=== PATIENT | female | born 1965 | race Caucasian/White ===

== ENCOUNTER 2018-01-04 13:26 | Emergency (ER) | payer OTHER, SELFPAY ==
[2018-01-04 13:27] VITALS: BP 136/85; PULSE 74; RESP 16; TEMP 36.9; O2SAT 100; BMI 24.5
--- NOTE | 2018-01-04 14:05 | ED.VISSUMM ---
- ER Visit Summary Date of Service: 01/04/18 Chief Complaint: Headache with a history of migraines History of Present Illness: The patient is a 52 F her migraines. Currently out of her Imitrex. States that she has had it for last 3 days it is right side behind her right eye typical vertigo migraines. Gradual onset. No trauma. She is on no blood thinners. No fever. Came over from work to be evaluated and hopefully treated. She denies any trouble moving her arms or legs. No visual change or speech change. She is having photophobia. Physical Examination: Signs are stable afebrile. HEENT exam unremarkable. Pupils are reactive light. Extra motions intact. No facial trauma. Neck nontender no meningismus. Lungs clear to auscultation bilaterally. Heart regular rate and rhythm no murmur. Abdomen is soft nontender. Normal bowel sounds. No peritoneal signs. Extremities moving all 4. Neurovascular intact. Neuro exam normal. NIH is 0. Normal speech. No facial droop. Fingertip to nose and [id number] within normal limits. 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 Bilateral dorsi plantar flexion. Test Results: None Emergency Department Course and Treatment: Treated with IV fluids, Toradol and Zofran. She was also given subcu Imitrex Treatment Plan: Multiple repeat exams the patient's headache is improving and almost resolving after subcu Imitrex. Neurologic exam remains normal. She will be discharged home. Disposition: Discharge Impression: Acute cephalgia with history of migraines This note was generated with [employer] dictation software. It may contain incorrect words, spelling, and punctuation that were not noted in review of the chart prior to signing ED Disposition - Plan for ED Patient: Disposition: Home or Assisted Living Chief Complaint: Headache Instructions: ED Headache Migraine Referrals: Jaleel Huggins MD [Primary Care Provider] - As Needed Additional Instructions: Plenty of fluids and rest. Tylenol Motrin as needed for pain.
--- NOTE | 2018-01-04 14:08 | ED.DCSUM_ITS ---
- ER Visit Summary Date of Service: 01/04/18 Chief Complaint: Headache with a history of migraines History of Present Illness: The patient is a 52 F her migraines. Currently out of her Imitrex. States that she has had it for last 3 days it is right side behind her right eye typical vertigo migraines. Gradual onset. No trauma. She is on no blood thinners. No fever. Came over from work to be evaluated and hopefully treated. She denies any trouble moving her arms or legs. No visual change or speech change. She is having photophobia. Physical Examination: Signs are stable afebrile. HEENT exam unremarkable. Pupils are reactive light. Extra motions intact. No facial trauma. Neck nontender no meningismus. Lungs clear to auscultation bilaterally. Heart regular rate and rhythm no murmur. Abdomen is soft nontender. Normal bowel sounds. No peritoneal signs. Extremities moving all 4. Neurovascular intact. Neuro exam normal. NIH is 0. Normal speech. No facial droop. Fingertip to nose and [id number] within normal limits. Bilateral car salter strength. Bilateral dorsi plantar flexion. Test Results: None Emergency Department Course and Treatment: Treated with IV fluids, Toradol and Zofran. She was also given subcu Imitrex Treatment Plan: Multiple repeat exams the patient's headache is improving and almost resolving after subcu Imitrex. Neurologic exam remains normal. She will be discharged home. Disposition: Discharge Impression: Acute cephalgia with history of migraines This note was generated with [employer] dictation software. It may contain incorrect words, spelling, and punctuation that were not noted in review of the chart prior to signing ED Disposition - Plan for ED Patient: Disposition: Home or Assisted Living Chief Complaint: Headache Instructions: ED Headache Migraine Referrals: aJleel Huggins MD [Primary Care Provider] - As Needed Additional Instructions: Plenty of fluids and rest. Tylenol Motrin as needed for pain.
--- NOTE | 2018-01-04 14:08 | ED.DEP ---
ED Disposition - Plan for ED Patient: Disposition: Home or Assisted Living Chief Complaint: Headache Instructions: ED Headache Migraine Referrals: Jaleel Huggins MD [Primary Care Provider] - As Needed Additional Instructions: Plenty of fluids and rest. Tylenol Motrin as needed for pain.
[2018-01-04] MEDS: Ketorolac 30 MG/ML Syringe IV (14:09)
[2018-01-04] MEDS: 0.9% Normal Saline 1,000 ML 999 ML IV (14:09)
[2018-01-04] MEDS: Ondansetron 4 MG/2 ML Vial IV (14:09)
[2018-01-04] MEDS: SUMAtriptan 6 MG/0.5 ML Vial SC (16:06)
== END 2018-01-04 16:44 | disposition home or self-care (01) ==
LOC: ED 14:15
PROVIDERS: Emergency Provider Emergency Medicine; Family Provider Family Medicine; PCP Family Medicine
DX: G43.909 Migraine, unspecified, not intractable, without status migrainosus (principal)
CPT/HCPCS: 96372; 96374; 96375; 99283; J7030; A4216; J2405; J3030

== ENCOUNTER → 2019-10-08 | Outpatient (CLI) | payer OTHER, SELFPAY ==
[2019-10-01 09:28] VITALS: BMI 24.5
[2019-10-08 12:10] LABS: Absolute Lymphocyte Count 2.82 X10^3/uL (0.83-4.51); Absolute Neutrophil Count 3.9 X10^3/uL (2.0-7.7); Basophil# 0.08 X10^3/uL; Basophil% 1.1 % (0-1); Eosinophil# 0.17 X10^3/uL; Eosinophils% 2.2 % (0-5); Hematocrit 42.1 % (37-47); Hemoglobin 13.5 g/dL (12.0-15.0); Lymphocyte # 2.82 X10^3/ul (4.0); Lymphocyte % 37.1 % (19-41); Mean Corp Hgb Conc 32.1 g/dL (32-36); Mean Corpuscular Hgb 31.2 pg (27.0-32.0); Mean Corpuscular Volume 97.2 fL (81-99); Mean Platelet Vol. 9.2 fl (6.2-12.0); Monocyte# 0.65 X10^3/uL; Monocyte% 8.6 % (0-10); NRBC Flagged by Analyzer 0 % (0-5); Neutrophil # 3.86 X10^3/uL (2.7-7.7); Neutrophil % 50.7 % (47-70); Platelet Count 266 K/mm3 (150-450); RBC Distribution Width CV 12.2 % (11.6-14.6); Red Blood Count 4.33 M/mm3 (4.2-5.4); White Blood Count 7.6 K/mm3 (4.4-11.0)
[2019-10-08 12:56] LABS: ALB/GLOB Ratio 1.3 RATIO (0.9-2.4); AST(SGOT) 18 U/L (15-37); Alanine Aminotransfer ALT/SGPT 32 U/L (13-56); Albumin, Serum 3.7 g/dL (3.2-5.0); Alkaline Phosphatase 92 U/L (45-117); Anion Gap 5 (5-15); BUN 17 mg/dL (7-18); BUN/Creat Ratio 22.5 RATIO (10-20); Chloride 107 mmol/L (98-107); Cholesterol 198 mg/dL (200); Creatinine, Serum 0.76 mg/dL (0.55-1.02); EST Glomerular Filtration Rate 85 mL/min (>60); Est Glom Filt Rate - Afr Amer 103 mL/min (>60); Globulin 2.9 g/dL (2.2-4.2); Glucose 92 mg/dL (74-106); High Density Lipoprotein 71 mg/dL; Potassium 4.1 mmol/L (3.5-5.1); Protein, Total 6.6 g/dL (6.4-8.2); Sodium Level 141 mmol/L (136-145); Thyroid Stim Hormone (TSH) 0.99 uIU/mL (0.358-3.74); Triglycerides 69 mg/dL; Very Low Density Lipoprotein 14 mg/dL (5-40)
== END | disposition home or self-care (01) ==
LOC: BIMLAB 08:46
PROVIDERS: Family Provider Family Medicine; PCP Family Medicine; Visit Provider Nurse Practitioner Family
DX: Z13.0 Encounter for screening for diseases of the blood and blood-forming organs and certain disorders involving the immune mechanism (principal); Z13.29 Encounter for screening for other suspected endocrine disorder; Z13.220 Encounter for screening for lipoid disorders
CPT/HCPCS: 36415; 80053; 80061; 84443; 85025

== ENCOUNTER → 2021-09-28 14:33 | Outpatient (CLI) | payer OTHER, SELFPAY | PROVIDERS: PCP Family Medicine; Referring Provider Nurse Practitioner Family; Visit Provider Nurse Practitioner Family | DX: Z00.00 Encounter for general adult medical examination without abnormal findings (principal) | CPT/HCPCS: 36415 ==

== ENCOUNTER → 2022-09-27 | Outpatient (CLI) | payer OTHER, SELFPAY | END | disposition home or self-care (01) | LOC: BIMLAB 15:04 | PROVIDERS: PCP Family Medicine; Referring Provider Nurse Practitioner Family; Visit Provider Nurse Practitioner Family | DX: Z00.00 Encounter for general adult medical examination without abnormal findings (principal) | CPT/HCPCS: 36415 ==

== ENCOUNTER → 2025-07-29 | Outpatient (CLI) | payer BC, SELFPAY ==
--- NOTE | 2025-07-29 07:54 | US_ITS ---
PROCEDURE: PELVIC W/ TRANSVAGINAL 07/29/2025 REASON FOR EXAM: ABD PAIN, HISTORY OF OVARIAN CYSTS TECHNIQUE: Procedure Code: [id number] Modality: US Procedure: PELVIC W/ TRANSVAGINAL COMPARISON: None FINDINGS: Measurements: Uterus: 6.8 x 5.4 x 2.9 cm. Endometrial Thickness: 3 mm Right Ovary: 2.0 x 1.5 x 1.4 cm Left Ovary: 2.3 x 1.2 x 1.4 cm Uterus: A fibroid is present at the body on the left. It is primarily myometrial but abuts the junctional zone measuring 1.1 x 1.2 x 0.9 cm. Right ovary: No mass. Left ovary: No mass Other: No free fluid US/Pelvic w/ Transvaginal IMPRESSION: 1. No ovarian mass is seen. 2. Uterine fibroid, FIGO 3. Reading Location: [id number]
== END | disposition home or self-care (01) ==
PROVIDERS: PCP Family Medicine; Referring Provider Nurse Practitioner Family; Visit Provider Nurse Practitioner Family
DX: R10.9 Unspecified abdominal pain (principal)
CPT/HCPCS: 76830; 76856

== ENCOUNTER → 2025-10-15 | Outpatient (CLI) | payer BC, SELFPAY ==
--- NOTE | 2025-10-15 11:23 | RAD_ITS ---
PROCEDURE: CHEST PA AND LATERAL 10/15/2025 REASON FOR EXAM: COUGH TECHNIQUE: Procedure Code: RADCXR Modality: DX Procedure: CHEST PA AND LATERAL COMPARISON: None FINDINGS: Hardware: None Heart: The heart size is normal. Mediastinum: The mediastinal contour is unremarkable. Lungs: The lungs are clear. Bones: The bones are unremarkable. RAD/Chest PA and Lateral IMPRESSION: NO ACUTE FINDINGS. Reading Location: [facility]
--- OUTSIDE RECORDS SUMMARY | 2025-10-15 17:51 | XMS RPT_ITS | CCD ---
Author Organization [facility] Care Team Providers Care Solar Electric Practitioner Name Role Phone Dr. Grisel Huggins Primary Care Provider [phone] Dr. Grisel Huggins Referring Provider [phone] Erik MANAGER DISASTER RECOVERY, MANAGER DISASTER RECOVERY-C Gamaliel Attending Provider [phone] LUCRETIA LEZAMA MD Attending Unavailable GRISEL HUGGINS DO Primary Care Physician Dr. Grisel Huggins DO Primary Care Provider [phone] Dr. Grisel Huggins DO Referring Provider [phone] Babak Flores Attending Provider [phone] [place]r MANAGER DISASTER RECOVERY-CSusan Attending Provider [phone] DAVID FRANK MD Attending Unavailable GRISEL HUGGINS DO Primary Care Unavailable Dr. Grisel Huggins DO Primary Care Provider Dr. Grisel Huggins DO Referring Provider [phone] [phone] MANAGER DISASTER RECOVERY-CSusan Referring Provider [phone] Grisel Huggins Primary Care Unavailable Babak Flores Attending Unavailable Grisel Huggins Referring Unavailable Grisel Huggins Referring Unavailable Grisel Huggins Primary Care Unavailable Susan Blackmon Attending Unavailable Grisel Huggins Primary Care Unavailable Susan Blackmon Referring Unavailable Susan Blackmon Attending Unavailable Allergies Allergy Classification Reported Allergen(s) Allergy Type Date of Onset Reaction(s) Facility (3 sources) Sulfonamides (Antibiotic) Propensity to adverse reactions 2 Rash [facility] (1 source) Sulfonamides (Antibiotic) Drug allergy (disorder) 5 [facility] Repository Medications Current Medications Medication Drug Class(es) Dates Sig (Normalized) Sig (Original) acetaminophen 325 mg / HYDROcodone bitartrate 5 mg oral tablet (1 source) Opioid Agonist Start: 07-11-2025 End: 07-14-2025 take 1 tablet by mouth every six hours as needed for pain Sarepta 325- 5 mg oral tablet Dose = 1 tab(s), Oral, q6h, PRN As needed for severe pain, X 3 day(s), # 12 tab(s), 0 Refill(s), Abdominal pain, 58.5 Start Date: 07/11/25 Stop Date: 07/14/25 Status: Ordered Medication Dispense Status: Completed Quantity: 12.0 Unit: tab(s) Total Allowed Fills: 1 Fills Dispensed: 0 Indications: Unspecified abdominal pain; SUMAtriptan 100 mg oral tablet (20 sources) Serotonin-1b and Serotonin-1d Receptor Agonist Start: 12-01-2024 take 1 tablet by mouth once Sumatriptan Succinate 100 mg tablet Active 100 mg PO ONCE 9 December 01, 2024 11:15am Start: 02-28-2018 End: 12-01-2024 Sumatriptan Succinate 100 mg tablet Discontinued 0 .ROUTE .COMPLEX 9 October 10, 2023 9:17am November 14, 2023 11:52am TAKE ONE AT FIRST SIGN OF MIGRAINE HEADACHE, REPEAT IN TWO HRS IF NEEDED. Start: 02-28-2018 End: 02-28-2018 take 1 tablet by mouth once Sumatriptan Succinate (Imi trex) 100 mg tablet Discontinued 100 mg PO ONCE February 28, 2018 12:00am February 28, 2018 10:10am Completed/Discontinued Medications Medication Drug Class(es) Dates Sig (Normalized) Sig (Original) cyclobenzaprine hydrochloride 10 mg oral tablet (6 sources) Muscle Relaxant Start: 08-29-2018 End: 04-02-2019 take 1 tablet by mouth three times daily as needed for muscle spasms Cyclobenzaprine 10 mg tablet Discontinued 10 mg PO THREE TIMES A DAY as needed for muscle spasm September 11, 2018 3:50pm April 02, 2019 11:08am only after work hours on work days predniSONE 20 mg oral tablet (3 sources) Start: 08-29-2018 End: 09-11-2018 take 3 tablets by mouth once daily, then take 2 tablets by mouth once daily, then take 1 tablet by mouth once daily Prednisone 20 mg tablet Discontinued 20 mg PO DAILY 18 0 August 29, 2018 12:00am September 11, 2018 1:44pm 3 tablets daily for 3 days, then 2 tablets daily for 3 days, then 1 tablet daily for 3 days Problems Active Problems Problem Classification Problem Date Documented Da te Episodic/Chronic Abdominal pain (10 sources) Lower abdominal pain; Translations: [Lower abdominal pain, unspecified] Onset: 07-11-2025 Episodic Headache; including migraine (3 sources) Migraine; Translations: [Migraine, unspecified, not intractable, without status migrainosus] 04-02-2019 Chronic Other connective tissue disease (3 sources) Iliotibial band friction syndrome of left knee; Translations: [Iliotibial band syndrome, left leg] 03-27-2025 Episodic Other connective tissue disease (3 sources) Hand pain; Translations: [Pain in right hand] 03-27-2025 Episodic Other non-traumatic joint disorders (3 sources) Multiple joint pain; Translations: [Pain in unspecified joint] 03-27-2025 Episodic Sprains and strains (3 sources) Low back strain; Translations: [Strain of muscle, fascia and tendon of lower back, initial encounter] 08-29-2018 Episodic Past or Other Problems Problem Classification Problem Date Documented Da te Episodic/Chronic Other connective tissue disease (1 source) Pain in right hand; Translations: [Pain in right hand] Onset: 03-27-2025 Episodic Other connective tissue disease (1 source) Pain in left hand; Translations: [Pain in left hand] Onset: 03-27-2025 Episodic Other non-traumatic joint disorders (1 source) Pain in unspecified joint; Translations: [Pain in unspecified joint] Onset: 03-27-2025 Episodic Results Test Name Value Interpretation Reference Range Facility Pelvic w/ Transvaginalon Pelvic w/ Transvaginal [facility] [address] [place] [address] Pelvic w/ Transvaginal MR#: [id number] Acct: [id number] Name: TRACEY MARROQUIN Rep #: [id number] : 1965 F 60 From: Tarun Marsh MD PCP: Dr. Grisel Huggins, DO Status: REG CLI Study: Pelvic w/ Transvaginal Date of Exam: 07/29/25 Exam# [id number] Ordering Dr: Susan Blackmon PROCEDURE: PELVIC W/ TRANSVAGINAL 07/29/2025 REASON FOR EXAM: ABD PAIN, HISTORY OF OVARIAN CYSTS TECHNIQUE: Procedure Code: [id number] Modality: US Procedure: PELVIC W/ TRANSVAGINAL COMPARISON: None FINDINGS: Measurements: Uterus: 6.8 x 5.4 x 2.9 cm. Endometrial Thickness: 3 mm Right Ovary: 2.0 x 1.5 x 1.4 cm Left Ovary: 2.3 x 1.2 x 1.4 cm Uterus: A fibroid is present at the body on the left. It is primarily myometrial but abuts the junctional zone measuring 1.1 x 1.2 x 0.9 cm. Right ovary: No mass. Left ovary: No mass Other: No free fluid US/Pelvic w/ Transvaginal IMPRESSION: 1. No ovarian mass is seen. 2. Uterine fibroid, FIGO 3. Reading Location: [id number] CC: MARNIE Blackmon; Dr. Grisel Huggins DO Weapons Electrical Engineering Officer: Signed Normal [facility] Internal Medicine Office Vis ito 07-14-2025 Internal Medicine Office Visit [facility] [address] [place] [address] [place] [address] OFFICE VISIT Date of Service: 07/14/25 MR#: [id number] Acct: [id number] Name: TRACEY MARROQUIN Rep #: [id number] : 1965 Provider: MARNIE garcia Age/Sex: 60/F Location[place] [facility] Status: Signed Intake Vital Signs 03/27/25 09:47 07/14/25 11:05 Height 5 ft 2 in 5 ft 2 in Weight: 129 lb 127 lb 2 oz BMI 23.6 23.2 BP 108/76 126/78 H Blood Pressure Location Lt brachial Lt brachial Position Sitting Sitting Respiration 16 16 Pulse 82 79 Pulse Source Monitor Monitor Temp 98.3 F 96.3 F L Temp Source Temporal Temporal Pulse Oximetry (%) 96 98 Oxygen Delivery Method room air room air Intake Visit Reasons: [facility] ER F/U Chief Complaint: abd pain Team Leader Required: No Accompanied by: Self Is patient in pain?: No Allergies Sulfa (Sulfonamide Antibiotics) Adverse Reaction (Verified 07/14/25 11:03) Rash Medications ???Medication ???Instructions ???Recorded ???Confirmed ???Type sumatriptan succinate 100 mg tablet 100 mg PO ONCE #9 TABLETS 12/0107/14/25 Rx Nurse's Note: severe abdominal pain very sore still elevated wbc count [facility] Medical History Encounter for preventative adult health care examination History of ovarian cyst Migraines Surgical History History of appendectomy Family History Father Depression Hypertension CVA (cerebral vascular accident) Mother Hypertension Social History Smoking Status: Never smoker alcohol intake: never substance use type: does not use what type of physical activity do you participate in: walking frequency: other details: When she can HPI HPI Chief Complaint: abd pain Details: TRACEY MARROQUIN, is a 60 F who presents to the office today for follow-up from her recent ER visit. Patient was seen at [facility] on July 11 for abdominal pain. Patient with a history of ruptured ovarian cysts. She noted on that morning that she started with abdominal pain which made her diarrhea for paretic and said it was extreme pain in her lower abdomen radiating to her back she denied any dysuria hematuria urgency or frequency no nausea vomiting fever or chills. She had had a bowel movement earlier which was normal no diarrhea or bloody stools. She did not take any new medications or eat any foods out of the usual for her. She also had no chest pain no shortness of breath no cough no skin rashes no lightheadedness dizziness. She does state having these episodes previously has had them while at work. She says when they happen she gets severe lower abdominal pain she becomes pale sweaty and has not found any relieving or causation. Has not been evaluated for previous episodes. States they are sporadic has not noted any specific timing of occurrence. She states her period stopped at age 53 or 54. Has not had any vaginal discharge or bleeding. States that she did have surgical exploration in the past where they found her bowel was looped and fluid was removed. Today patient still has some tenderness to the abdomen but the extreme pain is resolved. ROS Const Constitutional: No body ache, excessive sweating, fatigue, fever(s), frequent falls, headache(s), snoring, weakness, weight change, sleep problems or change in appetite Eyes Eyes: No blurry vision, change in vision, eye pain or Light sensitivity ENT ENT: No abnormal hearing, ear or mastoid pain, tinnitus, nasal congestion, headache(s), neck pain or sore throat Resp Respiratory: No cough, shortness of breath, snoring or wheezing Cardio Cardiology: No chest pain at rest, chest pain with exertion, excessive sweating, shortness of breath, dyspnea on exertion, lightheadedness, orthopnea or palpitations Gastro GI: No abdominal pain, change in bowel habits, constipation, cramping, diarrhea, nausea/dyspepsia or vomiting Genitourinary-Femal e: No burning urination, painful urination, urinary incontinence, urinary frequency, blood in urine, abnormal periods or pelvic pain Musc Musculoskeletal: No abnormal gait, joint pain, back pain, limited range of motion, neck pain, numbness, stiffness, tingling or Arthritis Skin Skin: No dry skin, redness, lesions, itchy eyes, rash or wounds Neuro Neurology: No abnormal gait, abnormal hearing, abnormal speech, dizziness, weakness, frequent falls, headache(s), memory loss, numbness or tingling Psych Psychiatric: No anxiety, No change in appetite, No depression, No memory loss and No Thoughts of harming yourself/Others Endo Endocrine: No cold intolerance, excessive sweating, fatigue, flushing, heat (more content not included)... Normal [facility] .Auto Diffon 07-11-2025 Basophil, Absolute 0.1 10 3/mcL Normal 0.0-0.3 [facility] Comment on above: Performed By: #### L IP, CMP, ADIFF, GFR, ANEU, MDW, CBC #### [place] [id number] [place], [place] [address] Basophils/100 WBC (Bld) 0.4 % Normal 0.0-2.5 [facility] Comment on above: Performed By: #### L IP, CMP, ADIFF, GFR, ANEU, MDW, CBC #### [address] [address] Eosinophil, Absolute 0.0 10 3/mcL Normal 0.0-0.7 [facility] Comment on above: Performed By: #### L IP, CMP, ADIFF, GFR, ANEU, MDW, CBC #### [address] [address] Eosinophils/100 WBC (Bld) 0.0 % Normal 0.0-6.0 [facility] Comment on above: Performed By: #### L IP, CMP, ADIFF, GFR, ANEU, MDW, CBC #### [address] [address] Lymphocyte, Absolute 1.3 10 3/mcL Normal 0.9-4.3 [facility] Comment on above: Performed By: #### L IP, CMP, ADIFF, GFR, ANEU, MDW, CBC #### [address] [address] Lymphocytes/100 WBC (Bld) 8.1 % Low 20.0-40.0 [facility] Comment on above: Performed By: #### L IP, CMP, ADIFF, GFR, ANEU, MDW, CBC #### [address] [address] Monocyte, Absolute 0.4 10 3/mcL Normal 0.1-1.4 [facility] Comment on above: Performed By: #### L IP, CMP, ADIFF, GFR, ANEU, MDW, CBC #### [address] [address] Monocytes/100 WBC (Bld) 2.3 % Normal 2.0-13.0 [facility] Comment on above: Performed By: #### L IP, CMP, ADIFF, GFR, ANEU, MDW, CBC #### [address] [address] Neutrophils/100 WBC (Bld) 89.2 % High 50.0-75.0 [facility] Comment on above: Performed By: #### L IP, CMP, ADIFF, GFR, ANEU, MDW, CBC #### [address] [address] .GFRon 07-11-2025 Estimated Glomerular Filtration Rate 97 ml/min/1.73sqm Normal [facility] Comment on above: Result Comment: Stages of Chronic Kidney Disease (CKD) Stage Description eGFR(ml/min/1.73 sq.m.) CKD 1 Normal kidney function or >=90 normal kindney function with possible kidney damage (ex. Proteinuria) CKD 2 Kidney damage with mild loss 60-89 of kidney function CKD 3a Mild to moderate loss of kidney 45-59 function CKD 3b Moderate to severe loss of 30-44 of kindey function CKD 4 Severe loss of kidney function 15-29 CKD 5 Kidney failure <15 Note: (go live 2024) the eGFR calculation was updated to the 2020 CKD-EPI creatinine equation without a race factor to calculate the eGFR results. Performed By: #### L IP, CMP, ADIFF, GFR, ANEU, MDW, CBC #### [address] [address] .MDWon 07-11-2025 Monocyte Distribution Width 16.77 Normal 0.00-20.00 [facility] Comment on above: Result Comment: For ED adult patients suspected of sepsis, MDW<=20.0 does not rule out sepsis or risk of sepsis Performed By: #### L IP, CMP, ADIFF, GFR, ANEU, MDW, CBC #### [address] [address] .NEUABSon 07-11-2025 Neutrophil, Absolute 14.4 10 3/mcL High 2.3-8.1 [facility] Comment on above: Performed By: #### L IP, CMP, ADIFF, GFR, ANEU, MDW, CBC #### [address] [address] CBCon 07-11-2025 Erythrocyte distribution width (RBC) [Ratio] 13.4 % Normal 11.5-15.5 [facility] Comment on above: Performed By: #### L IP, CMP, ADIFF, GFR, ANEU, MDW, CBC #### [place] [address] Hematocrit (Bld) [Volume fraction] 40.5 % Normal 34.0-46.0 [facility] Comment on above: Performed By: #### L IP, CMP, ADIFF, GFR, ANEU, MDW, CBC #### [address] [address] Hgb 13.7 G/dL Normal 12.0-16.0 [facility] Comment on above: Performed By: #### L IP, CMP, ADIFF, GFR, ANEU, MDW, CBC #### [address] [address] MCH (RBC) [Entitic mass] 31.5 pg Normal 27.0-33.0 [facility] Comment on above: Performed By: #### L IP, CMP, ADIFF, GFR, ANEU, MDW, CBC #### [address] [address] MCHC 33.7 G/dL Normal 32.0-36.0 [facility] Comment on above: Performed By: #### L IP, CMP, ADIFF, GFR, ANEU, MDW, CBC #### [address] [address] MCV (RBC) [Entitic vol] 93.4 fL Normal 80.0-99.0 [facility] Comment on above: Performed By: #### L IP, CMP, ADIFF, GFR, ANEU, MDW, CBC #### [address] [address] Platelet 262 10 3/mcL Normal 150-450 [facility] Comment on above: Performed By: #### L IP, CMP, ADIFF, GFR, ANEU, MDW, CBC #### [address] [address] Platelet mean volume (Bld) [Entitic vol] 6.8 fL Normal 6.6-10.5 [facility] Comment on above: Performed By: #### L IP, CMP, ADIFF, GFR, ANEU, MDW, CBC #### [address] [address] RBC 4.33 10 6/mcL Normal 4.10-5.30 [facility] Comment on above: Performed By: #### L IP, CMP, ADIFF, GFR, ANEU, MDW, CBC #### [address] [address] WBC 16.2 10 3/mcL High 4.5-10.8 [facility] Comment on above: Performed By: #### L IP, CMP, ADIFF, GFR, ANEU, MDW, CBC #### [address] [address] CMPon 07-11-2025 Albumin Level 3.9 G/dL Normal 3.4-4.8 [facility] Comment on above: Performed By: #### L IP, CMP, ADIFF, GFR, ANEU, MDW, CBC #### [address] [address] Albumin/Globulin [Mass ratio] 1.4 {ratio} Normal 1.1-2.5 [facility] Comment on above: Performed By: #### L IP, CMP, ADIFF, GFR, ANEU, MDW, CBC #### [address] [address] ALP [Catalytic activity/Vol] 107 U/L Normal 40-135 [facility] Comment on above: Performed By: #### L IP, CMP, ADIFF, GFR, ANEU, MDW, CBC #### [address] [address] ALT [Catalytic activity/Vol] 25 U/L Normal 14-59 [facility] Comment on above: Performed By: #### L IP, CMP, ADIFF, GFR, ANEU, MDW, CBC #### [address] [address] AST [Catalytic activity/Vol] 16 U/L Normal 10-40 [facility] Comment on above: Performed By: #### L IP, CMP, ADIFF, GFR, ANEU, MDW, CBC #### [address] [address] Bili Total 0.4 mg/dL Normal 0.2-1.0 [facility] Comment on above: Result Comment: Use of this assay is not recommended for patients undergoing treatment with eltrombopag due to the potential for falsely elevated results. Performed By: #### L IP, CMP, ADIFF, GFR, ANEU, MDW, CBC #### [place] [address] BUN/Creatinine Ratio 18 ratio Normal 7-27 [facility] Comment on above: Performed By: #### L IP, CMP, ADIFF, GFR, ANEU, MDW, CBC #### [place] [id number] Calcium [Mass/Vol] 9.5 mg/dL Normal 8.4-10.2 [facility] Comment on above: Performed By: #### L IP, CMP, ADIFF, GFR, ANEU, MDW, CBC #### [address] [address] Chloride [Moles/Vol] 101 mmol/L Normal 98-107 [facility] Comment on above: Performed By: #### L IP, CMP, ADIFF, GFR, ANEU, MDW, CBC #### [address] [address] CO2 [Moles/Vol] 32 mmol/L High 23-31 [facility] Comment on above: Performed By: #### L IP, CMP, ADIFF, GFR, ANEU, MDW, CBC #### [address] [address] Creatinine [Mass/Vol] 0.71 mg/dL Normal 0.51-0.95 [facility] Comment on above: Performed By: #### L IP, CMP, ADIFF, GFR, ANEU, MDW, CBC #### [address] [address] Electrolyte Balance 6.0 mEq/L Normal 4.0-15.0 [facility] Comment on above: Performed By: #### L IP, CMP, ADIFF, GFR, ANEU, MDW, CBC #### [address] [address] Globulin 2.8 G/dL Normal 2.7-4.4 [facility] Comment on above: Performed By: #### L IP, CMP, ADIFF, GFR, ANEU, MDW, CBC #### [address] [address] Glucose [Mass/Vol] 144 mg/dL High 80-115 [facility] Comment on above: Performed By: #### L IP, CMP, ADIFF, GFR, ANEU, MDW, CBC #### [address] [address] Potassium [Moles/Vol] 3.6 mmol/L Normal 3.5-5.1 [facility] Comment on above: Performed By: #### L IP, CMP, ADIFF, GFR, ANEU, MDW, CBC #### [address] [address] Sodium [Moles/Vol] 139 mmol/L Normal 136-145 [facility] Comment on above: Performed By: #### L IP, CMP, ADIFF, GFR, ANEU, MDW, CBC #### [address] [address] Total Protein 6.7 G/dL Normal 6.4-8.2 [facility] Comment on above: Performed By: #### L IP, CMP, ADIFF, GFR, ANEU, MDW, CBC #### [address] [address] Urea nitrogen [Mass/Vol] 13 mg/dL Normal 7-18 [facility] Comment on above: Performed By: #### L IP, CMP, ADIFF, GFR, ANEU, MDW, CBC #### [address], [place] [address] CT ABD/PELVIS W/ IV CONTRAST ONLYon 07-11-2025 CT ABD/PELVIS W/ IV CONTRAST ONLY ORIGINAL HISTORY: Abdominal pain COMPARISON: Pain TECHNIQUE: CT of the Abdomen and Pelvis following uncomplicated administration of intravenous contrast, with sagittal and coronal reconstructions. This exam was performed according to our departmental dose optimization program, and includes the following measures where applicable: automated exposure control, adjustment of the mAs and/or kVp according to patient size and/or exam, and an iterative reconstruction algorithm. FINDINGS: The study is limited by improper patient positioning and associated streak artifact. Otherwise, the abdominal organs are unremarkable in appearance. There is an appendectomy. Bowel is poorly evaluated in the absence of oral contrast. There is no free fluid. IMPRESSION: Mildly limited examination. Otherwise unremarkable. Interpreted by: Christian Estrella MD Preliminary Report By: Christian Estrella MD Electronically signed By Christian Estrella MD Dictated Date: 07/11/2025 12:36:03 PM Prelim Date: 07/11/2025 12:39:24 PM Sign Date: 07/11/2025 12:39:24 PM Ordering Provider: DAVID Gilbert [facility] By[facility] SYSTEM SYSTEM on 07-11-2025 Albumin BCP dye [Mass/Vol] 3.9 G/dL Normal 3.4 - 4.8 G/dL AO ADM SS Albumin/Globulin [Mass ratio] 1.4 {ratio} Normal 1.1 - 2.5 ratio AO ADM SS ALP [Catalytic activity/Vol] 107 U/L Normal 40 - 135 U/L AO ADM SS ALT With P-5'-P [Catalytic activity/Vol] 25 U/L Normal 14 - 59 U/L AO ADM SS AST With P-5'-P [Catalytic activity/Vol] 16 U/L Normal 10 - 40 U/L AO ADM SS Basophils (Bld) [#/Vol] 0.1 103/mcL Normal 0.0 - 0.3 10^3/mcL AO Workflow SS Basophils/100 WBC (Bld) 0.4 % Normal 0.0 - 2.5 % AO Workflow SS Bilirubin [Mass/Vol] 0.4 mg/dL Normal 0.2 - 1 .0 mg/dL AO ADM SS Comment on above: Interpretive Data: U se of this assay is not recommended for patients undergoing treatment with eltrombopag due to the potential for falsely elevated results. Calcium [Mass/Vol] 9.5 mg/dL Normal 8.4 - 10. 2 mg/dL AO ADM SS Chloride [Moles/Vol] 101 mmol/L Normal 98 - 10 7 mmol/L AO ADM SS CO2 [Moles/Vol] 32 mmol/L High 23 - 31 mmol/L AO ADM SS Creatinine [Mass/Vol] 0.71 mg/dL Normal 0.51 - 0.95 mg/dL AO ADM SS Electrolyte Balance 6.0 mEq/L Normal 4.0 - 15 .0 mEq/L AO ADM SS Eosinophil, Absolute 0.0 103/mcL Normal 0.0 - 0 .7 10^3/mcL AO Workflow SS Eosinophils/100 WBC (Bld) 0.0 % Normal 0.0 - 6.0 % AO Workflow SS Erythrocyte distribution width (RBC) [Ratio] 13.4 % Normal 11.5 - 15.5 % AO Workflow SS Estimated Glomerular Filtration Rate 97 ml/min/1.73sqm Invalid Interpretation Code AO Chemistry S Comment on above: Interpretive Data: Stages of Chronic Kidney Disease (CKD) Stage Description eGFR(ml/min/1.73 sq.m.) CKD 1 Normal kidney function or >=90 normal kindney function with possible kidney damage (ex. Proteinuria) CKD 2 Kidney damage with mild loss 60-89 of kidney function CKD 3a Mild to moderate loss of kidney 45-59 function CKD 3b Moderate to severe loss of 30-44 of kindey function CKD 4 Severe loss of kidney function 15-29 CKD 5 Kidney failure <15 Note: (go live 2024) the eGFR calculation was updated to the 2020 CKD-EPI creatinine equation without a race factor to calculate the eGFR results. Globulin 2.8 G/dL Normal 2.7 - 4.4 G/dL AO ADM SS Glucose [Mass/Vol] 144 mg/dL High 80 - 115 mg/dL AO ADM SS Hematocrit (Bld) [Volume fraction] 40.5 % Normal 34.0 - 46.0 % AO Workflow SS Hemoglobin (Bld) [Mass/Vol] 13.7 G/dL Normal 12.0 - 16.0 G/dL AO Workflow SS Lipase [Catalytic activity/Vol] 26 U/L Normal 16 - 77 U/L AO ADM SS Lymphocytes (Bld) [#/Vol] 1.3 103/mcL Normal 0.9 - 4.3 10^3/mcL AO Workflow SS Lymphocytes/100 WBC (Bld) 8.1 % Low 20.0 - 40.0 % AO Workflow SS MCH (RBC) [Entitic mass] 31.5 pg Normal 27.0 - 33.0 pg AO Workflow SS MCHC 33.7 G/dL Normal 32.0 - 36.0 G/dL AO Workflow SS MCV (RBC) [Entitic vol] 93.4 fL Normal 80.0 - 99.0 fL AO Workflow SS Monocyte distribution width Auto (Bld) [Entitic vol] 16.77 1 Normal 0.00 - 20.00 AO Workflow SS Comment on above: Result Comment: For ED adult patients suspected of sepsis, MDW<=20.0 does not rule out sepsis or risk of sepsis Monocytes (Bld) [#/Vol] 0.4 103/mcL Normal 0.1 - 1.4 10^3/mcL AO Workflow SS Monocytes/100 WBC (Bld) 2.3 % Normal 2.0 - 13.0 % AO Workflow SS Neutrophils (Bld) [#/Vol] 14.4 103/mcL High 2.3 - 8.1 10^3/mcL AO Workflow SS Neutrophils/100 WBC (Bld) 89.2 % High 50.0 - 75.0 % AO Workflow SS Platelet mean volume (Bld) [Entitic vol] 6.8 fL Normal 6.6 - 10.5 fL AO Workflow SS Platelets (Bld) [#/Vol] 262 103/mcL Normal 150 - 450 10^3/mcL AO Workflow SS Potassium [Moles/Vol] 3.6 mmol/L Normal 3.5 - 5.1 mmol/L AO ADM SS Protein [Mass/Vol] 6.7 G/dL Normal 6.4 - 8.2 G/dL AO ADM SS RBC (Bld) [#/Vol] 4.33 106/mcL Normal 4.10 - 5.3 0 10^6/mcL AO Workflow SS Sodium [Moles/Vol] 139 mmol/L Normal 136 - 145 mmol/L AO ADM SS Urea nitrogen [Mass/Vol] 13 mg/dL Normal 7 - 18 mg/dL AO ADM SS Urea nitrogen/Creatinine [Mass ratio] 18 ratio Normal 7 - 27 ratio AO ADM SS WBC (Bld) [#/Vol] 16.2 103/mcL High 4.5 - 10.8 10^3/mcL AO Workflow SS LABORATORYOrdered By: [place] on 07-11-2025 Appearance (U) Clear (07/11/25 11:12 AM) Normal Clear AO Auto Urine SS Bilirubin Ql (U) Negative (07/11/25 11:12 AM) Normal Negative AO Auto Urine SS Color (U) Yellow (07/11/25 11:12 AM) Normal AO Auto Urine SS Glucose Test strip (U) [Mass/Vol] Negative Normal Negative AO Auto Urine SS Hemoglobin Auto test strip (U) [Mass/Vol] Negative (07/11/25 11:12 AM) Normal Negative AO Auto Urine SS Ketones Ql (U) Trace mg/dL Invalid Interpretation Code Negative AO Auto Urine SS UA Leuk Est Negative (07/11/25 11:12 AM) Normal Negative AO Auto Urine SS UA Nitrite Negative (07/11/25 11:12 AM) Normal Negative AO Auto Urine SS UA pH 7.0 (07/11/25 11:12 AM) Normal 5.0 - 8.0 AO Auto Urine SS UA Protein Negative Normal Negative AO Auto Urine SS UA Spec Grav 1.020 (07/11/25 11:12 AM) Normal 1.015-1.025 AO Auto Urine SS UA Specimen Type Clean Catch (07/11/25 11:12 AM) Normal AO Auto Urine SS UA Urobilinogen 1.0 E.U./dL Normal 0.2-1.0 AO Auto Urine SS LIPon 07-11-2025 Lipase Level 26 U/L Normal 16-77 [facility] Comment on above: Performed By: #### L IP, CMP, ADIFF, GFR, ANEU, MDW, CBC #### [address] [address] UAon 07-11-2025 Color (U) Yellow Normal [facility] Comment on above: Performed By: #### U A #### [address] [place], [place] [address] Glucose (U) [Mass/Vol] Negative Normal Negative [facility] Comment on above: Performed By: #### U A #### [address] [address] Ketones Ql (U) Trace Abnormal Negative [facility] Comment on above: Performed By: #### U A #### [place] [address] UA Appear Clear Normal Clear [facility] Comment on above: Performed By: #### U A #### [place] [address] UA Blood Negative Normal Negative [facility] Comment on above: Performed By: #### U A #### [place] [address] UA Leuk Est Negative Normal Negative [facility] Comment on above: Performed By: #### U A #### [place] [address] UA Nitrite Negative Normal Negative [facility] Comment on above: Performed By: #### U A #### [place] [address] UA pH 7.0 Normal 5.0 - 8.0 [facility] Comment on above: Performed By: #### U A #### [place] [address] UA Protein Negative Normal Negative [facility] Comment on above: Performed By: #### U A #### [place] [address] UA Spec Grav 1.020 Normal 1.015-1.025 [facility] Comment on above: Performed By: #### U A #### [place] [address] UA Specimen Type Clean Catch Normal [facility] Comment on above: Performed By: #### U A #### [place] [address] UA Urobilinogen 1.0 E.U./dL Normal 0.2-1.0 [facility] Comment on above: Performed By: #### U A #### [place] [address] Urobilinogen (U) [Mass/Vol] Negative Normal Negative [facility] Comment on above: Performed By: #### U A #### [facility] [address] [place], [place] [address] Internal Medicine Office Vis minerva 03-27-2025 Internal Medicine Office Visit [facility] [address] [place] [address] [place] [address] OFFICE VISIT Date of Service: 03/27/25 MR#: [id number] Acct: [id number] Name: TRACEY MARROQUIN Rep #: [id number] : 1965 Provider: ATUL Rose Age/Sex: 59/F Location: [facility] Status: Signed Intake Vital Signs 11/14/23 10:29 03/27/25 09:47 Height 5 ft 2 in 5 ft 2 in Weight: 129 lb BMI 23.6 BP 108/76 Blood Pressure Location Lt brachial Position Sitting Respiration 16 Pulse 82 Pulse Source Monitor Temp 98.3 F Temp Source Temporal Pulse Oximetry (%) 96 Oxygen Delivery Method room air Intake Visit Reasons: ACUTE PAIN BEHIND LEFT KNEE Chief Complaint: generalized joint pain and left knee joint Team Leader Required: No Accompanied by: Self Is patient in pain?: Yes (all over ) Pain scale (1-10): 5 Allergies Sulfa (Sulfonamide Antibiotics) Adverse Reaction (Verified 03/27/25 09:39) Rash Medications ???Medication ???Instructions ???Recorded ???Confirmed ???Type sumatriptan succinate 100 mg tablet 100 mg PO ONCE #9 TABLETS 12/0103/27/25 Rx Have you fallen in the past year?: No PFSH Medical History Encounter for preventative adult health care examination History of ovarian cyst Migraines Surgical History History of appendectomy Family History Father Depression Hypertension CVA (cerebral vascular accident) Mother Hypertension Social History Smoking Status: Never smoker alcohol intake: never substance use type: does not use what type of physical activity do you participate in: walking frequency: other details: When she can HPI HPI Chief Complaint: generalized joint pain and left knee joint Details: TRACEY MARROQUIN, is a 59 F who presents to the office today for some generalized joint pains in both the upper and lower extremities. She states that this is a chronic thing and she has drug her feet for a very long time. She states that it seems to come and go where she has flare-ups of these pains where it is really bad but then she states that she feels good for a while. She states that she has pains in pretty much ALL of the joint including the smaller joints of the hands / feet to the larger joints of the hips and knees. ROS Const Constitutional: No body ache, excessive sweating, fatigue, fever(s), frequent falls, headache(s), snoring, weakness, weight change, sleep problems or change in appetite Eyes Eyes: No blurry vision, change in vision, eye pain or Light sensitivity ENT ENT: No abnormal hearing, ear or mastoid pain, tinnitus, nasal congestion, headache(s), neck pain or sore throat Resp Respiratory: No cough, shortness of breath, snoring or wheezing Cardio Cardiology: No chest pain at rest, chest pain with exertion, excessive sweating, shortness of breath, dyspnea on exertion, lightheadedness, orthopnea or palpitations Gastro GI: No abdominal pain, change in bowel habits, constipation, cramping, diarrhea, nausea/dyspepsia or vomiting Genitourinary-Femal e: No burning urination, painful urination, urinary incontinence, urinary frequency, blood in urine, abnormal periods or pelvic pain Musc Musculoskeletal: No abnormal gait, joint pain, back pain, limited range of motion, neck pain, numbness, stiffness, tingling or Arthritis Skin Skin: No dry skin, redness, lesions, itchy eyes, rash or wounds Neuro Neurology: No abnormal gait, abnormal hearing, abnormal speech, dizziness, weakness, frequent falls, headache(s), memory loss, numbness or tingling Psych Psychiatric: No anxiety, No change in appetite, No depression, No memory loss and No Thoughts of harming yourself/Others Endo Endocrine: No cold intolerance, excessive sweating, fatigue, flushing, heat intolerance, increased thirst/drinking, increased hunger or weight change Aller/Imm Allergy/Immunologic : No itchy eyes, seasonal allergy symptoms, hives or wheezing Live/Lymp Hematologic/Lymphat ic: No easy bleeding, easy bruising or enlarged lymph nodes Exam Const General: cooperative, healthy appearing, no acute distress, well developed and well groomed Nutritional Appearance: average body habitus and well nourished Orientation: alert, awake and oriented x3 HENMT Head: normocephalic and atraumatic Ears: hearing grossly normal bilaterally Resp Effort Inspection: normal respiratory effort and able to speak in complete sentences Auscultation: Bilateral: Clear to Auscultation Cardio Rate: regular rate Rhythm: regular rhythm Heart Sounds: S1 normal and S2 normal Pulses: radial pulses present bilaterally 2+ Musc Musculoskeletal: Yes joint te (more content not included)... Normal [facility] No Panel Informationon 09-27 Miscellaneous Test See comment [facility] Work Phone: Comment on above: Scanned image report available in EMR COVID PCR, SCREENING CONGREG ATEon 05-20-2020 CORONAVIRUS 2019,PCR NOT DETECTED Normal Not Detected [facility] Comment on above: Result Comment: This assay is designed to detect the N, ORF1ab and/or S genes of SARS-CoV-2 via nucleic acid amplification. A Negative (NOT DETECTED) result does not preclude 2019-nCoV infection since the adequacy of sample collection and/or low viral burden may result in presence of viral nucleic acids below the clinical sensitivity of this test method. Negative (NOT DETECTED) result should not be used as the sole basis for treatment or other patient management decisions. Rather negative results should be combined with clinical observations, patient history, and epidemiological information to make patient management decisions. Fact sheet for providers: https://www.fda.gov/media/843627/download Fact sheet for patients: https://www.fda.gov/media/675550/download This test has received FDA Emergency Use Authorization (EUA) and has been verified by [facility]). This test is only authorized for the duration of time that circumstances exist to justify the authorization of the emergency use of in vitro diagnostic tests for the detection of SARS-CoV-2 virus and/or diagnosis of COVID-19 infection under section 564(b)(1) of the Act, 21 U.S.C. 360bbb-3(b)(1), unless the authorization is terminated or revoked sooner. [facility] ([facility]) is certified under CLIA-88 as qualified to perform high complexity testing. This tests analytical performance characteristics have been determined by [facility]. Testing is performed at [facility] is located at [facility] [place] [address] (CLIA License #[id number], CAP #[id number]). Performed By: #### C VCLA #### [facility] [address] [place] [address] COVID PCR, SCREENING CONGREG ATEon 05-19-2020 Lab Specimen Source Nasal, Nasopharyngeal Normal [facility] Comment on above: Performed By: #### C VCLA #### [facility] [address] [place] [address] Vital Signs Date Time Vital Sign Value Performing Clinician Aayushi lity 07-14-2025 11:05-0400 Body height 157.[address] Grisel Huggins DO Work Phone: [facility] 07-14-2025 11:05-0400 Body mass index (BMI) [Ratio] 23.2 kg/m2 Dr. Grisel Huggins DO Work Phone: [facility] 07-14-2025 11:05-0400 Body temperature 96.3 [degF] Dr. Grisel Huggins DO Work Phone: [facility] 07-14-2025 11:05-0400 Body weight 57.[address] Grisel Huggins DO Work Phone: [facility] 07-14-2025 11:05-0400 Diastolic blood pressure 78 mm[Hg] Dr. Grisel Huggins DO Work Phone: [facility] 07-14-2025 11:05-0400 Heart rate 79 /min Dr. Grisel Huggins DO Work Phone: [facility] 07-14-2025 11:05-0400 Respiratory rate 16 /min Dr. Grisel Huggins DO Work Phone: [facility] 07-14-2025 11:05-0400 SaO2% (BldA) [Mass fraction] 98 % Dr. Grisel Huggins DO Work Phone: [facility] 07-14-2025 11:05-0400 Systolic blood pressure 126 mm[Hg] Dr. Grisel Huggins DO Work Phone: [facility] 03-27-2025 09:47-0400 Body mass index (BMI) [Ratio] 23.6 kg/m2 Dr. Grisel Huggins DO Work Phone: [facility] 03-27-2025 09:47-0400 Body temperature 98.3 [degF] Dr. Grisel Huggins DO Work Phone: [facility] 03-27-2025 09:47-0400 Body weight 58.[address] Grisel Huggins DO Work Phone: [facility] 03-27-2025 09:47-0400 Diastolic blood pressure 76 mm[Hg] Dr. Grisel Huggins DO Work Phone: [facility] 03-27-2025 09:47-0400 Heart rate 82 /min Dr. Grisel Huggins DO Work Phone: [facility] 03-27-2025 09:47-0400 Respiratory rate 16 /min Dr. Grisel Huggins DO Work Phone: [facility] 03-27-2025 09:47-0400 SaO2% (BldA) [Mass fraction] 96 % Dr. Grisel Huggins DO Work Phone: [facility] 03-27-2025 09:47-0400 Systolic blood pressure 108 mm[Hg] Dr. Grisel Huggins DO Work Phone: [facility] 09-27-2022 14:22-0400 Body height 157.[address] Grisel Huggins Work Phone: [facility] Work Phone: 09-27-2022 14:22-0400 Body mass index (BMI) [Ratio] 22.4 kg/m2 Dr. Grisel Huggins Work Phone: [facility] Work Phone: 09-27-2022 14:22-0400 Body temperature 97 [degF] Dr. Grisel Huggins Work Phone: [facility] Work Phone: 09-27-2022 14:22-0400 Body weight 55.[address] Grisel Huggins Work Phone: [facility] Work Phone: 09-27-2022 14:22-0400 Diastolic blood pressure 82 mm[Hg] Dr. Grisel Huggins Work Phone: [facility] Work Phone: 09-27-2022 14:22-0400 Heart rate 59 /min Dr. Grisel Huggins Work Phone: [facility] Work Phone: 09-27-2022 14:22-0400 Respiratory rate 16 /min Dr. Grisel Huggins Work Phone: [facility] Work Phone: 09-27-2022 14:22-0400 SaO2% (BldA) [Mass fraction] 100 % Dr. Grisel Huggins Work Phone: [facility] Work Phone: 09-27-2022 14:22-0400 Systolic blood pressure 106 mm[Hg] Dr. Grisel Huggins Work Phone: [facility] Work Phone: Encounters Encounter Date Encounter Type Care Provider Facility Start: 07-29-2025 End: 07-29-[address] Grisel Huggins DO Work Phone: [facility] Start: 07-29-2025 End: 07-29-2025 Patient encounter procedure Susan Blackmon MANAGER DISASTER RECOVERYS[employer] Work Phone: Start: 07-29-2025 End: 07-29-2025 ambulatory Grisel Huggins Facility:[facility] Start: 07-14-2025 End: 07-14-2025 Patient encounter procedure Susan DYE -[facility] Work Phone: Start: 07-14-2025 End: 07-14-[address] Grisel Huggins DO Work Phone: [facility] Start: 07-11-2025 End: 07-11-2025 Emergency department patient visit DAVID FRANK MD [facility] Start: 05-04-2025 End: 05-04-2025 ambulatory LUCRETIA LEZAMA MD Facility:A Start: 05-04-2025 End: 05-04-2025 Patient encounter procedure LUCRETIA LEZAMA MD [facility] Start: 03-27-2025 End: 03-27-2025 Patient encounter procedure Babak POLLARD [facility] Work Phone: Start: 03-27-2025 End: 03-27-2025 ambulatory Grisel Huggins Facility[place] Start: 09-27-2022 End: 09-27-[address] Grisel Huggins Work Phone: [facility] Work Phone: Start: 09-27-2022 End: 09-27-[address] Grisel Huggins Work Phone: [facility] Start: 09-27-2022 End: 09-27-2022 Encounter for general adult medical examination without abnormal findings Dr. Grisel Huggins Work Phone: [facility] Start: 09-27-2022 End: 09-27-[address] Grisel Huggins Work Phone: [facility] Start: 09-28-[address] Linnea Huggins Work Phone: [facility] Start: 10-13-[address] Linnea Huggins Work Phone: [facility] Procedures Date Procedure Procedure Detail Performing Clinician Start: 07-29-[address] Linnea Huggins DO Work Phone: Plan of Treatment Date Care Activity Detail Author C reactive protein [ Mass/volume] in Serum or Plasma [facility] CBC W Auto Differential panel - Blood [facility] Work Phone: Cyclic citrullinated peptide IgG Ab [Units/volume] in Serum or Plasma [facility] spital Cytoplasmic ANCA Screen [facility] Erythrocyte sedimentation rate [facility] Lipid 1996 panel - Serum or Plasma [facility] Work Phone: Rheumatoid factor [Presence] in Serum [facility] Thyroid stimulating hormone measurement [facility] Work Phone: US Pelvis [facility] XR Hand 2 Views [facility] Payers Date Payer Category Payer Private Health Insurance [id number] 2025 Self-pay [id number] 2025 Unknown [id number] 1965 Unknown [id number] 1965 Unknown [id number] Unknown [employer] / NORIEGA DAIRY [id number] Unknown R PARRISH [id number] Unknown [id number] Unknown [id number] Unknown [id number] Social History Date Type Detail Facility Start: 09-27-2022 Tobacco smoking stat us NHIS Unknown if ever smoked [facility] Work Phone: Start: 1965 Sex Assigned At Female [facility] Start: 11-14-2023 End: 07-11-2025 Tobacco smoking status Never smoked tobacco (finding) [facility] Sexual Orientation [facility] Start: 01-04-2006 Sex Female (finding) [facility] Clinical Notes 03-27-2025 to 07-29-2025 Note Date & Type Note Facility 07-29-2025 Radiology Diagnostic study note [facility] Imaging Services [address] [place], [place] [address] Pelvic w/ Transvaginal MR#: [id number] Acct: [id number] Name: TRACEY MARROQUIN Rep #: [id number] : 1965 F 60 From: Kallie Marsh MD PCP: Dr. Grisel Huggins, DO Status: RE G CLI Study:Pelvic w/ Transvaginal Date of Exam: 07/29/25 Exam# [id number] Ordering Dr: Susan Blackmon MANAGER DISASTER RECOVERY-C PROCEDURE: PELVIC W/ TRANSVAGINAL 07/29/2025 REASON FOR EXAM: ABD PAIN, HISTORY OF OVARIAN CYSTS TECHNIQUE: Procedure Code: [id number] Modality: US Procedure: PELVIC W/ TRANSVAGINAL COMPARISON: None FINDINGS: Measurements: Uterus: 6.8 x 5.4 x 2.9 cm. Endometrial Thickness: 3 mm Right Ovary: 2.0 x 1.5 x 1.4 cm Left Ovary: 2.3 x 1.2 x 1.4 cm Uterus: A fibroid is present at the body on the left. It is primarily myometrial but abuts the junctional zone measuring 1.1 x 1.2 x 0.9 cm. Right ovary: No mass. Left ovary: No mass Other: No free fluid US/Pelvic w/ Transvaginal IMPRESSION: 1. No ovarian mass is seen. 2. Uterine fibroid, FIGO 3. Reading Location: [facility] CC: MARNIE Blackmon; Dr. 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 Everyone has this pain from time to time. In many cases it goes away on its own. But abdominal pain can sometimes be due to a serious problem, such as appendicitis. So it s important to know when to get help. Causes of abdominal pain There are many possible causes of abdominal pain. Common causes in adults include: Constipation, diarrhea, or gas Stomach acid flowing back up into the esophagus (acid reflux or heartburn) Severe acid reflux, called GERD (gastroesophageal reflux disease) A sore in the lining of the stomach or small intestine (peptic ulcer) Inflammation of the gallbladder, liver, or pancreas Gallstones or kidney stones Appendicitis Intestinal blockage An internal organ pushing through a muscle or other tissue (hernia) Urinary tract infections In women, menstrual cramps, fibroids, ovarian cysts, pelvic inflammatory disease, or endometriosis Inflammation or infection of the intestines, including Crohn's disease and ulcerative colitis Irritable bowel syndrome Diagnosing the cause of abdominal pain Your healthcare provider will give you a physical exam help find the cause of your pain. If needed,you will have tests. Belly pain has many possible causes. So it can be hard to find the reason for your pain. Giving details about your pain can help. Tell your provider where and when you feel the pain, and what makes it better or worse. Also let your provider know if you have other symptoms such as: Fever Tiredness Upset stomach (nausea) Vomiting Changes in bathroom habits Blood in the stool or black, tarry stool Weight loss that you can't explain (involuntary weight loss?) Also report any family history of stomach or intestinal problems, or cancers. Tell your provider about all your alcohol use and drug use. Tell your provider about all medicines you use, including herbs, vitamins, and supplements. Treating abdominal pain Some causes of pain need emergency medical treatment right away. These include appendicitis or a bowel blockage. Other problems can be treated with rest, fluids, or medicines. Your healthcare provider can give you specific instructions for treatment or self-care based on what is causing your pain. If you have vomiting or diarrhea, sip water or other clear fluids. When you are ready to eat solid foods again, start with small amounts of bkxr-gv-uwsacd, low- fat foods. These include apple sauce, toast, or crackers. When to get medical care Call 911 or go to the hospital right away if you: Can t pass stool and are vomiting Are vomiting blood or have bloody diarrhea or black, tarry diarrhea Have chest, neck, or shoulder pain Feel like you might pass out Have pain in your shoulder blades with nausea Have sudden, severe belly pain Have new, severe pain unlike any you have felt before Have a belly that is rigid, hard, and hurts to touch Call your healthcare provider if you have: Pain for more than 5 days Bloating for more than 2 days Diarrhea for more than 5 days A fever of 100.4 F (38 C) or higher, or as directed by your healthcare provider Pain that gets worse Weight loss for no reason Continued lack of appetite Blood in your stool How to prevent abdominal pain Here are some tips to help prevent abdominal pain: Eat smaller amounts of food at each meal. Don't eat greasy, fried, or other high-fat foods. Don't eat foods that give you gas. Exercise regularly. Drink plenty of fluids. To help prevent GERD symptoms: Quit smoking. Reduce alcohol and foods that increase stomach acid. Don't use aspirin or jcyt-mqt-jqpkbmr pain and fever medicines, if possible. This includes nonsteroidal anti-inflammatory drugs (NSAIDs). Lose excess weight. Finish eating at least 2 hours before you go to bed or lie down. Raise the head of your bed. [id number] [employer]. [address] [place] [address], [place] [address]. All rights reserved. This information is not intended as a substitute for professional medical care. Always follow yourhealthcare professional's instructions. Follow Up Care 07/11/2025 11:00:58 With:GRISEL HUGGINS Address: [facility] [address] [place] [phone]- [phone] Business (1) When:2-4 days Comments:Schedule appointment for close follow-up if symptoms recur.Use Tylenol, Advil or Aleve for recurrent pain as needed.Use Sarepta as prescribed for severe pain unrelieved with iipv-oby-ccsrbbt medications.Return to the ED if symptoms worsen. [facility] Mounaisis Johnson 08-16-2025 Emergency department Discharge summary Discharge Instructions Thank you for allowing [facility] to assist you with your healthcare needs. The following is importantdischarge information regarding your hospital visit. Diagnosis from Today's Visit Abdominal pain Lower abdominal pain, unspecified What to Do Next Instructions from Your Care Team No qualifying data available. Post Acute Orders No qualifying data available. You Need to Schedule the Following Appointments Follow Up with GRISEL HUGGINS When:Within 2-4 days Where:[facility] [address] [place] [phone]- [phone] Business (1) Additional Information: Schedule appointment for close follow-up if symptoms recur. Use Tylenol, Advil or Aleve for recurrent pain as needed. Use Sarepta as prescribed for severe pain unrelieved with unci-ndb-torvhnx medications. Return to the ED if symptoms worsen. Allergies [facility] Medications Please ask your primary doctor or pharmacist before taking any other medication not listed, including over the counter drugs, herbal medications, vitamins and or supplements as they may interact withyour home medications. What How Much When Why Instructions Last Dose New acetaminophen-hydrocodone (Sarepta 325- 5 mg oral tablet) 1 tab(s) by mouth Every 6 hours as needed for As needed for severe pain Abdominal pain Duration: 3 Days Printed Prescription Please take this list to your next doctor s visit. Bring all medications you take, including over the counter medications, herbals and other supplements with you to your doctor s visit. Patients and families are reminded to discard old lists and to update any records with all medication providers or retail pharmacies. Education Materials Abdominal Pain Abdominal pain is pain in the stomach or belly area. Everyone has this pain from time to time. In many cases it goes away on its own. But abdominal pain can sometimes be due to a serious problem, such as appendicitis. So it s important to know when to get help. Causes of abdominal pain There are many possible causes of abdominal pain. Common causes in adults include: Constipation, diarrhea, or gas Stomach acid flowing back up into the esophagus (acid reflux or heartburn) Severe acid reflux, called GERD (gastroesophageal reflux disease) A sore in the lining of the stomach or small intestine (peptic ulcer) Inflammation of the gallbladder, liver, or pancreas Gallstones or kidney stones Appendicitis Intestinal blockage An internal organ pushing through a muscle or other tissue (hernia) Urinary tract infections In women, menstrual cramps, fibroids, ovarian cysts, pelvic inflammatory disease, or endometriosis Inflammation or infection of the intestines, including Crohn's disease and ulcerative colitis Irritable bowel syndrome Diagnosing the cause of abdominal pain Your healthcare provider will give you a physical exam help find the cause of your pain. If needed,you will have tests. Belly pain has many possible causes. So it can be hard to find the reason for your pain. Giving details about your pain can help. Tell your provider where and when you feel the pain, and what makes it better or worse. Also let your provider know if you have other symptoms such as: Fever Tiredness Upset stomach (nausea) Vomiting Changes in bathroom habits Blood in the stool or black, tarry stool Weight loss that you can't explain (involuntary weight loss?) Also report any family history of stomach or intestinal problems, or cancers. Tell your provider about all your alcohol use and drug use. Tell your provider about all medicines you use, including herbs, vitamins, and supplements. Treating abdominal pain Some causes of pain need emergency medical treatment right away. These include appendicitis or a bowel blockage. Other problems can be treated with rest, fluids, or medicines. Your healthcare provider can give you specific instructions for treatment or self-care based on what is causing your pain. If you have vomiting or diarrhea, sip water or other clear fluids. When you are ready to eat solid foods again, start with small amounts of bylx-va-jpzqny, low- fat foods. These include apple sauce, toast, or crackers. When to get medical care Call 911 or go to the hospital right away if you: Can t pass stool and are vomiting Are vomiting blood or have bloody diarrhea or black, tarry diarrhea Have chest, neck, or shoulder pain Feel like you might pass out Have pain in your shoulder blades with nausea Have sudden, severe belly pain Have new, severe pain unlike any you have felt before Have a belly that is rigid, hard, and hurts to touch Call your healthcare provider if you have: Pain for more than 5 days Bloating for more than 2 days Diarrhea for more than 5 days A fever of 100.4 F (38 C) or higher, or as directed by your healthcare provider Pain that gets worse Weight loss for no reason Continued lack of appetite Blood in your stool How to prevent abdominal pain Here are some tips to help prevent abdominal pain: Eat smaller amounts of food at each meal. Don't eat greasy, fried, or other high-fat foods. Don't eat foods that give you gas. Exercise regularly. Drink plenty of fluids. To help prevent GERD symptoms: Quit smoking. Reduce alcohol and foods that increase stomach acid. Don't use aspirin or iqpb-rbw-qiphnwn pain and fever medicines, if possible. This includes nonsteroidal anti-inflammatory drugs (NSAIDs). Lose excess weight. Finish eating at least 2 hours before you go to bed or lie down. Raise the head of your bed. 4418-2127 [employer]. [address] [place] [address]. All rights reserved. This information is not intended as a substitute for professional medical care. Always follow yourhealthcare professional's instructions. Additional Information VACCINATE! IT SAVES LIVES! Members of the community who have not yet received the COVID-19 vaccine and would like to receive it can visit one of [facility] vaccine clinics. There are many vaccine clinic locations within the [facility]. For locations and available times, please visit [email or web address] It is important to note that some COVID mobile vaccine clinics are held outdoors and may be canceled in rainy or stormy conditions. To learn more about pediatric vaccinations (ages 5-11), we invite you to visit the [facility] webpage. [email or web address]/[email or web address] [email or web address] learn more about the COVID-19 vaccine, we invite you to visit the CDC website for a list of frequently asked questions. https://www.cdc.gov/coronavirus/2019-ncov/vaccines/faq.html [facility] Patient Portal Access Instructions: Stay connected with your healthcare team and access your personal medical information anytime with the [facility] Patient Portal. If you would like a full copy of your medical records please contact the [facility] Medical Records Department Sunday through Sunday between 8a.m. and 4:30p.m. Please follow the directions below to access the portal: 1.Access the email account you provided upon registration to the hospital.2.Look for an invitation email from [facility].3.Open the email and access the invitation link: Accept Invitation to [facility]4.Fill in the required li to create your account. Sign into [email or web address] with your username and password that you created in the above steps to stay up to date. You can then view a summary of results, a summary of your visits, and the ability to download your summaries to your computer or send the information securely to a physician. Remember that your healthcare information is confidential, so carefully consider who you will allow to register on the [facility] Patient Portal for access to your information. You can also access the [facility] Patient Portal on the [employer] nathalie. Simply click on Health Records under [employer]square and then click on the [facility] logo. HOW TO SAFELY DISPOSE OF PRESCRIPTION MEDICATIONS Please use one of the following methods to safely dispose of your unused medications. 1.Use a drug disposal kit: the drug disposal pouch allows you to safely discard your old and unuseddrugs. Ask your nurse to give you one when you are discharged.2.Visit a local take-back location: Many local pharmacies and police departments have programs that collect old and unwanted prescriptiondrugs. Call your local pharmacy or go to http://Evoleen.Wheelright/8A4Pg8k to find one close to you.3.Make use of household items: Use cat litter or old coffee grounds to dispose medications if other options arenot available. Mix your drugs with these household products, seal them in an airtight container andthrow it into the garbage. Call [facility]: [phone] to be sure your drugs can be disposed of in this way. Some medicines may require a different approach.4.Never flush your medications down the toilet. IF YOU HAVE BEEN PRESCRIBED AN OPIOIDS FOR PAIN If you have been prescribed an opioid (such as hydrocodone, oxycodone or morphine), it is critical to understand the possible side effects and risks of opioid pain medications. Even when taken as directed, opioids can have several side effects including: Tolerance, meaning you might need to take more of a medication for the same pain relief. Nausea, vomiting and/or constipation. Sleepiness, dizziness, dry mouth, confusion, depression or itching. Physical dependence, meaning you have withdrawal symptoms when a medication is stopped ? this can develop within a few days. KNOW YOUR RESPONSIBILITIES It is important to know exactly how much and how often to take the opioid pain medications you are prescribed. Never take opioids in higher amounts or more often than prescribed. Do not combine opioids with alcohol or other drugs that cause drowsiness, such as benzodiazepines, also known as benzos,including diazepam and alprazolam, muscle relaxants or sleep aids. Never sell or share prescriptionopioids. This is illegal. Store opioids in a secure place and out of reach of others (including children, family, friends and visitors). The last page(s) of this document has been signed and retained as a CHART COPY Signatures Patient Education Materials Abdominal Pain Medication Leaflets My discharge plan and instructions have been reviewed and explained to me and ILOPEZ TINA M understand my current condition and have read and understand these discharge instructions. I have received a written copy of the plan/instructions. If I have questions, I am aware that I should contact my doctor. Patient/Visitor Services Assistant Signature: Date/Time: Relationship to Patient: Witness Name/Signature: Date/Time: [facility]08-16-2025 Note* Exam Date Time Procedure Performing Provider Status 07/11/25 12:[address] Abd/Pelvis w/ IV Contrast Only CHRISTIAN ESTRELLA MD; Auth (Verified) [id number] ORIGINAL HISTORY: Abdominal pain COMPARISON: Pain TECHNIQUE: CT of the Abdomen and Pelvis following uncomplicated administration of intravenous contrast, with sagittal and coronal reconstructions. This exam was performed according to our departmental dose optimization program, and includes the following measures where applicable: automated exposure control, adjustment of the mAs and/or kVp according to patient size and/or exam, and an iterative reconstruction algorithm. FINDINGS: The study is limited by improper patient positioning and associated streak artifact. Otherwise, the abdominal organs are unremarkable in appearance. There is an appendectomy. Bowel is poorly evaluated in the absence of oral contrast. There is no free fluid. IMPRESSION: Mildly limited examination. Otherwise unremarkable. Interpreted by: Christian Estrella MD Preliminary Report By: Christian Estrella MD Electronically signed By Christian Estrella MD Dictated Date: 07/11/2025 12:36:03 PM Prelim Date: 07/11/2025 12:39:24 PM Sign Date: 07/11/2025 12:39:24 PM Ordering Provider: DAVID [facility]06-09-2025 Note* Exam Date Time Procedure Performing Provider Status 05/04/25 3:32 PM VL Venous US/Doppler One Leg (for DVT). PATRICIA KEY MD; Auth (Verified) [id number] Evaluation note* Diagnosis Onset Date Resolution Status Admit Date Bilateral hand pain acute March 272024 9:35am Iliotibial band syndrome of left side acute March 27, 2025 9: 35am Polyarthralgia acute March 27 9:35am Abdominal pain acute June 10:59am [facility] Work Phone: Evaluation + Plan note No data available for this section [facility] Evaluation note* Diagnosis Onset Date Resolution Status Encounter for preventative a dult health care examination [facility] Work Phone: Hospital Discharge instructions No data available for this section [facility] Progress note No data available for this section [facility] Reason for referral (narrative)No [facility] for [facility] Summary Purpose Family History No Family History Records Found Relationship Condition Age at Onset Recorded Date/T roselyn father Depression Unknown Hypertension Unknown Cerebrovascular accident (CVA) Unknown mother Hypertension Unknown Advance Directives No Advanced Directives Records Found Advance Directive Response Recorded Date/ Time Living Will No September 03 8 3:18pm 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 of 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 No September 03, 2 018 3:18pm Chief Complaint and Reason for Visit Chief Complaint WELLNESS EXAM Reason for Visit Encounter for aftab [facility]den adult health care examination Chief Complaint Admit Date ACUTE PAIN BEHIND LEFT KNEE March 27 9:35am [facility] ER F/U July 14 10:59am Reason for Visit Admit Date Bilateral hand pain March 27, 2025 9:35am Iliotibial band syndrome of left side Ma y 2024 9:35am Polyarthralgia March 27, 2025 9:35am Abdominal pain July 14, 2025 10 :59am Chief Complaint Admit Date [facility]NA [facility] ER F/U July 14 10:59am ABD PAIN July 29, 2025 7:50am Reason for Visit Admit Date Abdominal pain July 14, 2025 10 :59am Additional Source Comments INFORMATION SOURCE (unrecogn ized section and content) DATE CREATED AUTHOR 06/15/2020 [facility] DATE CREATED AUTHOR AUTHOR'S ORGANIZ ATION 05/17/2025 [facility] DATE CREATED AUTHOR AUTHOR'S ORGANIZ ATION 07/17/2025 [facility] DATE CREATED AUTHOR AUTHOR'S ORGANIZ ATION 08/07/2025 [facility] Goals (unrecognized section and content) Goals may be documented in a n alternate section No data available for this section No data available for this sectionGoals may be documented in an alternate sectionGoals may be documented in an alternate section Patient Care team informatio n (unrecognized section and content) Team Status: Active Member Role/Relationship Status Dates Dr. Grisel Huggins DO Family Provider Active Dr. Grisel Huggins , DO Primary Care Provider Active Team Status: Inactive Member Role/Relationship Status Dates Dr. Grisel Huggins DO Primary Care Provider Active Start: March 27, 2025 End: March 27, 2025 Dr. Grisel Huggins , DO Referring Provider Active Start: March 27, 2025 End: March 27, 2025 Babak POLLARD, PA Attending Provider Active St art: March 27, 2025 End: March 27, 2025 Team Status: Inactive Member Role/Relationship Status Dates Dr. Grisel Huggins DO Primary Care Provider Active Start: July 14, 2025 End: July 14, 2025 Dr. Grisel Huggins DO Referring Provider Active Start: July 14, 2025 End: July 14, 2025 Susan Blackmon [employer] Attending Provider Active Start: July 14, 2025 End: July 14, 2025 Team Status: Active Member Role/Relationship Status Dates Dr. Grisel Huggins DO Primary Care Provider Active Team Status: Inactive Member Role/Relationship Status Dates Dr. Grisel Huggins DO Primary Care Provider Active Start: July 14, 2025 End: July 14, 2025 Dr. Grisel Huggins DO Referring Provider Active Start: July 14, 2025 End: July 14, 2025 Susan Blackmon , [employer] Attending Provider Active Start: July 14, 2025 End: July 14, 2025 Team Status: Inactive Member Role/Relationship Status Dates Dr. Grisel Huggins DO Primary Care Provider Active Start: July 29, 2025 End: July 29, 2025 Susan Burrisr , [employer] Attending Provider Active Start: July 29, 2025 End: July 29, 2025 Susan Ungerer , [employer] Referring Provider Active Start: July 29, 2025 End: July 29, 2025 FOR RECORDS PERTAINING TO PATIENTS WHO ARE OR HAVE BEEN ENROLLED IN A CHEMICAL DEPENDENCY/SUBSTANCEABUSE PROGRAM, SOME INFORMATION MAY BE OMITTED. This clinical summary was aggregated from multiple sources. Caution should be exercised in using it in the provision of clinical care. This summary normalizes information from multiple sources, and as a consequence, information in this document may materially change the coding, format and clinical context of patient data. In addition, data may be omitted in some cases. CLINICAL DECISIONS SHOULD BE BASED ON THE PRIMARY CLINICAL RECORDS. [facility] [employer] provides no warranty or guarantee of the accuracy or completeness of information in this document.
== END | disposition home or self-care (01) ==
LOC: MTRAD 11:23
PROVIDERS: PCP Family Medicine; Referring Provider Physician Assistant Surgical; Visit Provider Physician Assistant Surgical
DX: R05.9 Cough, unspecified (principal)
CPT/HCPCS: 71046